=== PATIENT | female | born 1955 | race Caucasian/White ===

== ENCOUNTER 2017-03-11 05:11 | Inpatient (IN) ==
[2017-03-05 12:14] LABS: Apearance,Urine CLEAR (Clear); Bilirubin,Urine Negative (Negative); Blood, Urine Moderate mg/dL (Negative); Glucose,Urine (UA) Negative (Negative); Ketones,Urine Negative (Negative); Mucus,Urine Occasional /LPF (Occasional); Nitrite,Urine Negative (Negative); Protein,Urine Negative; RBC,Urine 1 /HPF (0-4); Urine Color Yellow (Yellow); Urine Specific Gravity 1.012 (1.001-1.035); Urine Urobilinogen < 2.0 EU/DL (0.2-1.0); WBC,Urine 1 /HPF (0-6)
[2017-03-05 12:21] LABS: PT Patient Result 10.8 SECS; Partial Thromboplastin Time 26.2 SECS (0-40)
--- NOTE | 2017-03-05 13:17 | XRay Report ---
XR chest 2V Indication: Respiratory preop evaluation. Comparison: None. Technique: PA and lateral chest x-ray was performed. Findings: The heart size appears within normal limits. Previous sternotomy is demonstrated. Pulmonary vasculature demonstrates no specific abnormality. Hilar structures demonstrate fairly symmetric appearance. The lungs appear clear. Bones and soft tissues demonstrate no evidence of acute pathology. Impression: 1. No active cardiopulmonary disease. 03/05/2017 1:14 PM PROCEDURE INTERPRETED AT [facility] DEPARTMENT OF RADIOLOGY Final Report Signed by: Dr. Carlito Kendrick
[2017-03-11] MEDS ORDERED: VANCOMYCIN INJ 1,000 MG in SODIUM CHLORIDE 0.9% 250 ML IV ONE (06:00)
[2017-03-11] MEDS ORDERED: VANCOMYCIN 1,000 MG VIAL ONE (06:03)
[2017-03-11] MEDS ORDERED: ceFAZolin 1,000 MG VIAL ONE (06:04)
[2017-03-11] MEDS ORDERED: SODIUM CHLORIDE 0.9% 100 ML IV ONE (06:04)
[2017-03-11] MEDS ORDERED: TRANEXAMIC ACID 1,000 MG/10 ML VIAL IV ONE (06:07)
[2017-03-11] MEDS: LACTATED RINGERS 1,000 ML IV SCH ×2 (06:19→22:08)
[2017-03-11] MEDS ORDERED: FAMOTIDINE 20 MG TABLET PO ONE (06:19)
[2017-03-11] MEDS ORDERED: LORazepam 1 MG TABLET PO ONE (06:19)
[2017-03-11] MEDS ORDERED: LORazepam 1 MG TABLET ONE (06:39)
[2017-03-11] MEDS ORDERED: FAMOTIDINE 20 MG TABLET ONE (06:39)
--- NOTE | 2017-03-11 07:12 | History and Physical Update ---
History and Physical Update - History and Physical H&P was reviewed, the patient examined and there: are no changes in the patients condition since last H&P was completed.
[2017-03-11 08:10] LABS: Apearance,Urine CLEAR (Clear); Bilirubin,Urine Negative (Negative); Blood, Urine Small mg/dL (Negative); Glucose,Urine (UA) Negative (Negative); Ketones,Urine Negative (Negative); Nitrite,Urine Negative (Negative); Protein,Urine Negative; RBC,Urine 1 /HPF (0-4); Squamous Epithelial Cell,Urine Occasional /HPF (0-10); Urine Color Colorless (Yellow); Urine Specific Gravity 1.003 (1.001-1.035); Urine Urobilinogen < 2.0 EU/DL (0.2-1.0); WBC,Urine 2 /HPF (0-6)
--- NOTE | 2017-03-11 08:47 | XRay Report ---
Referring Physician: Juvenal Teresa Exam: XR hip OR RT Date: March 11, 2017 at 8:13 AM Reason: Right total hip replacement Comparison: None Findings: One intraoperative image of the right hip was provided. The patient is status post right total hip replacement. Position and alignment appear satisfactory. The remaining visualized osseous structures appear intact. Surgical drains are seen at the lateral aspect of the right hip, and there is mild soft tissue air at the right hip, which is likely related to surgery. A hemostat projects at the hip replacement. Impression: The patient is status post right total hip replacement. Position and alignment appear satisfactory. PROCEDURE INTERPRETED AT [facility] DEPARTMENT OF RADIOLOGY Final Report Signed by: Dr. Clark Perez
[2017-03-11] MEDS ORDERED: PROPOFOL 200 MG/20 ML VIAL IV ONE (08:59)
[2017-03-11] MEDS ORDERED: KETAMINE 500 MG/10 ML VIAL ONE (09:00)
[2017-03-11] MEDS ORDERED: LACTATED RINGERS 1,000 ML IV ONE (09:01)
[2017-03-11] MEDS ORDERED: MORPHINE 10 MG/10 ML VIAL ONE (09:01)
[2017-03-11] MEDS ORDERED: MIDAZOLAM 2 MG/2 ML VIAL ONE (09:01)
[2017-03-11] MEDS ORDERED: MAGNESIUM HYDROXIDE SUSP 30 ML UDCUP PO PRN (09:13)
[2017-03-11] MEDS ORDERED: PROMETHAZINE 25 MG/1 ML VIAL IM PRN (09:13)
[2017-03-11] MEDS ORDERED: HYDROmorphone 2 MG/1 ML VIAL IV PRN (09:13)
[2017-03-11] MEDS ORDERED: NALOXONE 0.4 MG/ML VIAL IV PRN (09:13)
[2017-03-11] MEDS ORDERED: TEMAZEPAM 7.5 MG CAPSULE PO PRN (09:13)
[2017-03-11] MEDS ORDERED: BISACODYL 10 MG SUPP RECTAL PRN (09:13)
[2017-03-11] MEDS ORDERED: LACTULOSE 20 GM/30 ML UDCUP PO PRN (09:13)
[2017-03-11] MEDS ORDERED: diphenhydrAMINE CAP 25 MG CAPSULE PO PRN (09:13)
[2017-03-11] MEDS ORDERED: ONDANSETRON 4 MG/2 ML VIAL IV PRN (09:13)
[2017-03-11] MEDS: HYDROmorphone PCA 30 MG/30 ML SYRINGE IV SCH (13:46)
--- NOTE | 2017-03-11 15:42 | Cardiology Consult Note ---
Ignacio Robbins Vanessa, RN, am scribing for, and in the presence of, Braydon Briggs MD 15:42. Assessment and Plan - Time spent with patient Time spent with patient: Greater than 30 minutes (Due to assessment, planning, documentation, medication review) (1) Status post right hip replacement Status: Acute Assessment and plan: From a cardiac standpoint, she appears to be doing well at this time. We will check EKG in the morning and follow along with you perioperatively. Current Visit: Yes (2) History of coronary artery disease Status: Chronic Assessment and plan: Clinically, no findings for ACS or other anginal equivalent at this time Current Visit: Yes (3) History of coronary artery bypass graft x 1 Status: Chronic Assessment and plan: Appears stable at this time. Current Visit: Yes (4) Osteoarthritis Status: Chronic Assessment and plan: Chronic. Current Visit: Yes History of Present Illness - Data of Consult Patient: known to practice within the last 3 years Consult date: 03/11/17 Requesting Physician: Juvenal Teresa Jr. Primary care physician: Brittnee Jones - Consult Narrative Reason for consult: perioperative cardiac medical management History of present illness: PRIMARY WEED CUTTER: DR. MCGOWAN CARDIOLOGY CONSULT NOTE: PERIOPERATIVEE CARDIAC MANAGEMENT Ms. Gallardo is a 61 year old white female with risk factor significant for: dyslipidemia, known history of CAD. She has never smoked. Patient is status post single-vessel coronary artery bypass grafting to the LAD 13 years ago. Other past medical history includes osteoarthritis. She was seen at [facility] clinic for preoperative evaluation prior to right hip replacement at request of Dr. snider. Patient had admitted to some moderate dyspnea on exertion and was noted to have slightly abnormal EKG. Lexiscan stress testing on March 05 negative for ischemia or diagnostic EKG change. No chest pain or anginal complaint. Lab work revealed cholesterol inadequately controlled, and atorvastatin 40 mg added. Patient was low risk for planned procedure. [facility] for planned total right hip replacement today, carried out earlier this morning, and this was uneventful. Cardiology is now asked to see to follow for perioperative management. Patient seen and examined. Ms. Gallardo is drowsy, but she is arousable and pleasant. She is in no acute distress at this time. Denies chest pain or discomfort, shortness of breath, dizziness, lightheadedness, nausea or vomiting , or other complaint. Skin is warm and dry. Right hip with dry and intact sterile surgical dressing. Wound VAC is in place-serous drainage. Distal pulses are present and palpable bilaterally. Pulse rate is in the 50s and regular by exam. Systolic BP 95-100 mmHg. Overall, she appears hemodynamically stable at this time. We will monitor perioperative EKG and follow with you. She is stable postoperatively and doing well from a cardiac standpoint. CC: Juvenal Teresa Jr., MD - Home Medications and Allergies Home Medications: Home Medications Medication Instructions Recorded Confirmed Type Aspirin EC Tab 325 mg PO DAILY 03/05/17 03/11/17 History Meloxicam 15 mg PO DAILY 03/05/17 03/11/17 History Allergies/Adverse Reactions: Allergies Allergy/AdvReac Type Severity Reaction Status Date / Time No Known Allergies Allergy Verified 03/05/17 11:57 - Constitutional Constitutional: Present: as per HPI - EENT Eyes: Present: as per HPI Nose, mouth and throat: Present: as per HPI - Cardiovascular Cardiovascular: Present: as per HPI - Respiratory Respiratory: Present: as per HPI - Gastrointestinal Gastrointestinal: Present: as per HPI - Genitourinary Genitourinary: Present: as per HPI - Musculoskeletal Musculoskeletal: Present: as per HPI - Neurological Neurological: Present: as per HPI - Psychiatric Psychiatric: Present: as per HPI - Endocrine Endocrine: Present: as per HPI - Hematologic/Lymphatic Hematologic/Lymphatic: Present: as per HPI Medical,Surgical,& Family Hx - Medical History Cardio: History of: CAD, Cardiovascular Problems (Lift Manager Dr. Mcgowan) Neurology: No history of: Seizures HEENT: History of: Ear Problem (Hearing Loss Rt Ear), Eye Problem (Glasses), Dental Problems (Crowns) Endocrine: History of: Dyslipidemia No history of: Diabetes Mellitus (IDDM), Diabetes Mellitus (NIDDM) Respiratory: Comment Only: Respiratory Problems (No Flu Vac 2016/2016 Season) Genitourinary: History of: Problems (overactive bladder) Musculoskeletal: History of: Musculoskeletal Problems (Rt Hip OA) Reproductive: History of: Ovarian Cysts (removal of Rt ovary and cyst) Other: No history of: Anesthesia Reactions, Cancer - Surgical History Cardiac Surgeries: Sugical HX of: Cardiac Catheterization, Cardiac Surgery ( CABG 2003) HEENT Surgeries: Patient denies: Eye Surgery, Tonsilectomy & Adenoidectomy Abdominal Surgeries: Patient denies: Colonoscopy, EGD Reproductive Surgeries: Surgical HX of;: Section, Tubal Ligation (1993) Orthopedic Surgeries: Surgical HX of;: Total Hip Replacement (Rt THR 03/11/17) - Family History Family History: Reports;: Family Anesthesia Reaction (Mother Trouble Waking), Family Cancer (Father Throat CA; Paternal Grandfather Lung), Family Diabetes ( Father, Maternal Grandfather), Family Heart Disease (Grandfather Materal), Family Hematology (Father-Had to have blood drawn off frequently), Family Hypertension (Father) Denies;: Family Stroke - Social History Smoking Status: Never smoker Frequency of Alcohol Use: None Type of Drug Use: None Physical Examination Vital Signs Temp Pulse Resp BP Pulse Ox 99.0 F 63 20 127/84 100 03/11/17 06:21 03/11/17 06:21 03/11/17 06:21 03/11/17 06:21 03/11/17 06:21 General: Present: Appears Well, No Apparent Distress HEENT: Present: PERRL, Normocephaly Neck: Present: Supple Neck, Midline Trachea, No JVD/HJR, No Bruit Cardiac: Present: Reg Rate and Rhythm, No Murmur, Bradycardia. Absent: Tachycardia Lungs: Present: Normal Exam, Clear Ascult./Percussion, No Wheeze, Rales, Rhonchi. Absent: Oxygen Neuro: Present: Grossly Intact. Absent: Numbness, Tingling, Weakness, Resting Tremor, Essential Tremor Abdomen: Present: Soft, Active Bowel Sounds. Absent: Ascites, Tender, Firm, Distended Skin: Present: Clear, Other (Right hip surgical dressing dry and intact. Wound VAC and blood). Absent: Rash Musculoskeletal: Present: Decreased Range of Motion, No Fluid Collection Extremities: Present: No Clubbing, No Cyanosis, No Edema, Normal Upper Extr. Pulses (3+ bilaterally), Normal Lower Extr. Pulses (3+ bilaterally), Capillary Refill (Normal). Absent: Edema Result/EKG - Labs Lab Results: I have reviewed the past 24 hour labs Labs: Laboratory Results - last 24 hr 03/11/17 03/11/17 06:11 08:04 Urine Color Colorless Urine Appearance Clear Urine pH 7.0 Ur Specific [place] 1.003 Urine Protein Negative Urine Glucose (UA) Negative Urine Ketones Negative Urine Blood Small Urine Nitrate Negative Urine Bilirubin Negative Urine Urobilinogen < 2.0 H Urine Leukocytes Small H Urine RBC 1 Urine WBC 2 Ur Squamous Epith Cells Occasional Ur Culture Indicated? Results to follow Blood Type A POSITIVE Antibody Screen Negative - EKG EKG results: interpreted by me, no acute changes EKG shows: bradycardia (Sinus bradycardia) Chester Robbins Wesley, MD, personally performed the services described in this documentation, ascribed by Meron Pierre RN in my presence, and it is both accurate and complete 542 .
--- NOTE | 2017-03-11 17:43 | Orthopedic Progress Note ---
Orthopedics - Subjective Interval history: Comfortable only use TUBER MACHINE OPERATOR HELPER once neurovascular intact , discussed iatrogenic fracture and PT , will progress starting in a.m. Exam - Constitutional Vitals: Period Temp Pulse Resp BP Sys/Montiel Pulse Ox Last 24 Hr 97.0 F-99.0 F 50-91 12-20 90-127/42-84 97-100
[2017-03-11] MEDS: FONDAPARINUX 2.5 MG/0.5 ML SYRINGE SUBCUT SCH (22:02)
[2017-03-11] MEDS: DOCUSATE SODIUM 100 MG CAPSULE PO SCH (22:02)
[2017-03-12] MEDS: LACTATED RINGERS 1,000 ML IV SCH ×2 (00:43→15:00)
[2017-03-12 05:18] LABS: Basophils % 0.2 % (0.0-0.8); Hematocrit 32.7 VOL% (35.7-47.0); Hemoglobin 11.2 GM/DL (12.0-16.0); Immature Granulocytes % 0.4 %; Immature Granulocytes Absolute 0.04 #; Lymphocytes # 1.1 10*3/uL (1.4-4.0); Lymphocytes % 11.2 % (21.3-54.2); Mean Corpuscular HGB Conc 34.3 GM/DL (32-36); Mean Corpuscular Hemoglobin 28 PG (27-34); Mean Corpuscular Volume 82.4 FL (87-102); Mean Platelet Volume 10.8 FL (9.6-12.0); Monocytes # 0.8 10*3/uL (0.11-0.8); Neutrophils # 8.2 10*3/uL (1.4-7.4); Neutrophils % 80.2 % (38.7-73.9); Platelet Count 152 T/CUMM (130-400); Red Blood Count 3.97 MC/CUMM (3.8-5.5); Red Cell Distribution Width 12.1 % (9.3-17.3); White Blood Count 10.2 T/CUMM (4-12)
[2017-03-12 05:40] LABS: Hypochromasia Slight; Microcytosis 1+; Platelet Estimate Adequate
[2017-03-12 05:49] LABS: Calcium 7.8 MG/DL (8.5-10.1); Osmolality,Calculated 271.8 MOS/KG (273-304); Potassium 3.5 MMOL/L (3.5-5.1)
--- NOTE | 2017-03-12 07:13 | EKG Report ---
Stationary ECG Study [facility] Test Date: 03/12/2017 7:13:07 AM Pat Name: SONIA AMADO Department: Room: 316 Gender: F Teenage Program Director: SOPHIE : [id number] Requested by: Braydon Briggs Order Number: [id number] Reading MD: BRAYDON BRIGGS Intervals [place] Rate: 93 P: 72 DC: 145 QRS: 24 QRSD: 101 T: 55 QT: 354 QTc: 405 Interpretive Statements SINUS RHYTHM WITH OCCASIONAL SUPRAVENTRICULAR PREMATURE COMPLEXES POSSIBLE LEFT ATRIAL ENLARGEMENT LOW QRS VOLTAGE IN PRECORDIAL LEADS INCOMPLETE RIGHT BUNDLE BRANCH BLOCK POSSIBLE ANTERIOR MYOCARDIAL INFARCTION, PROBABLY OLD Electronically Signed On 03-12-17 16:11:42 CDT by BRAYDON BRIGGS [email or web address]
--- NOTE | 2017-03-12 07:29 | Operative Note ---
DATE: 03/11/2017 PREOPERATIVE DIAGNOSIS: OSTEOARTHRITIS, RIGHT HIP. POSTOPERATIVE DIAGNOSIS: OSTEOARTHRITIS, RIGHT HIP. OPERATIVE PROCEDURE: RIGHT TOTAL HIP (S-ROM). SURGEON: Juvenal Teresa Jr., MD EARLY CHILDHOOD EDUCATOR AIDE: Dr. Storm ANESTHESIA: Spinal. INDICATIONS: A 61-year-old white female with longstanding osteoarthritis to her right hip. She has maximized conservative treatment. Her pain has gotten significant, not controlled with oral agents. She was recently evaluated and felt to be a candidate for total hip. Due to progression of her pain and her functional limitation, she presents today for elective procedure. OPERATIVE PROCEDURE: The patient was taken to the operating room, under spinal anesthetic, positione d in left lateral decubitus position. The right hip and lower extremity were prepped and draped in t he usual sterile manner. She received Vancomycin, Ancef preoperatively. A curvilinear incision was made over the posterolateral aspect of her right hip. Sharp dissection was carried down through the skin and subcutaneous tissue. The gluteus and IT band were split. The hip internally rotated, and the short rotators and capsule were dissected off the back of the proximal femur and kept the split f or later repair. The head dislocated and resected. The acetabulum was exposed and sequentially ream ed up to 49 mm. A cup was press fit into place, secured with a single screw and a trial neutral line r placed. The proximal femur was then prepared for the S-ROM, ultimately selecting a 16B small colla r. The initial reduction with the +6 lateralize resulted in a fracture of the medial calcar. This w as reduced and secured with a cable. The stem was changed to a 30 standard neck, 20/08 with the same collar. This resulted in good stability with a 0 head and equalization of limb lengths clinically o n the table. The trial components were removed including the acetabulum. The neutral liner was secu red, and the S-ROM sleeve and stem inserted. Again, a 0 head was trialed and selected. The hip was re-dislocated a final time and the head exchanged to a 32 mm Zero. Hip was relocated, intraoperative film confirming satisfactory position and also reduction of the medial calcar. The wound was furthe r irrigated and closed in a standard fashion over two 1/8-inch Hemovac drains using #1 Vicryl for th e posterior capsule as well as the IT band layer, 2-0 Vicryl for subcutaneous layer, and willian for skin. Sterile dressings applied, abduction pillow placed. She was rolled supine, placed on a bed an d taken to recovery room in stable condition.
--- NOTE | 2017-03-12 07:55 | Orthopedic Progress Note ---
Orthopedics - Subjective Interval history: Hematocrit over 30 comfortable drain removed neurovascularly intact will start PT today discussed working on home health Exam - Constitutional Vitals: Period Temp Pulse Resp BP Sys/Montiel Pulse Ox Last 24 Hr 97.0 F-100.1 F 50-104 12-20 85-123/42-68 93-100 Results - Labs CBC & BMP: 03/12/17 05:09 03/12/17 05:09
[2017-03-12] MEDS: ASPIRIN EC 325 MG TABLET PO SCH (09:59)
[2017-03-12] MEDS: MELOXICAM 7.5 MG TABLET PO SCH (09:59)
[2017-03-12] MEDS: DOCUSATE SODIUM 100 MG CAPSULE PO SCH ×2 (09:59→20:55)
[2017-03-12] MEDS: HYDROmorphone PCA 30 MG/30 ML SYRINGE IV SCH (10:01)
--- NOTE | 2017-03-12 11:52 | Anesthesia Post-Op ---
Anesthesia Post OP - Post Ansesthetic Evaluation Patient seen in post op: Yes Resp: within normal limits CV: within normal limits Mental: within normal limits Temp: within normal limits Cehd-An-Wojxazhea: within normal limits Nausea and Vomiting: within normal limits Pain: within normal limits
--- NOTE | 2017-03-12 13:20 | Pathology Report from [facility] ---
[facility] ACCESSION # : [id number] PATIENT NAME : Rema Amado ORDERING DR : YONG BOOKER JR, MD CLINICAL HX: RT hip osteoarthritis POST-OP DX: Same SPECIMEN INFO: RT hip bone & tissue GROSS DESCRIPTION: Received in formalin labeled REMA AMADO is a femoral head measuring 4.3 x 4.8 x 5.3 cm. The articular surface is red hess and focally degenerative with no subchondral eburnation identified. The cut surface is smooth with no softening appreciated. Received separately in the specimen container is an aggregate of bone and soft tissue measuring 8.0 x 6.0 cm. Proced Tech tissue is submitted in one cassette following decalcification. DIAGNOSIS FOR REMA AMADO: RIGHT HIP BONE & TISSUE, TOTAL REPLACEMENT: Osteoarthritis. COLLECTED DATE: 03/11/2017 [facility] REPORT DATE: 03/12/2017 ELECTRONICALLY SIGNED BY: Mery Joyce M.D. 03/12/2017 - 10:11:24 MTDVasquez
--- NOTE | 2017-03-12 13:47 | Cardiology Progress Note ---
Ignacio Robbins Vanessa, RN, am scribing for, and in the presence of, Braydon Briggs MD 13:46. Assessment and Plan - Time spent with patient Time spent with patient: Greater than 30 minutes (1) Status post right hip replacement Status: Acute Assessment and plan: POD #1 status post total right hip replacement. EKG this morning without acute change or finding. At this time, she seems to be doing well hemodynamically. Will defer primary management to orthopedic surgery. Current Visit: Yes (2) History of coronary artery disease Status: Chronic Assessment and plan: Clinically, remains without finding for ACS. She is not having any anginal complaint today. Current Visit: Yes (3) History of coronary artery bypass graft x 1 Status: Chronic Assessment and plan: Appears to be stable at this time. Current Visit: Yes (4) Osteoarthritis Status: Chronic Assessment and plan: Chronic. Current Visit: Yes Cardiology - PN: Subj Interval history: PRIMARY POULTRY HATCHERY MANAGER: DR. WELLINGTON SUMMARY: Ms. Gallardo is a 61 year old white female with risk factor significant for: dyslipidemia, known history of CAD. She has never smoked. Patient is status post single-vessel coronary artery bypass grafting to the LAD 13 years ago. Other past medical history includes osteoarthritis. She was seen at [facility] clinic for preoperative evaluation prior to right hip replacement at request of Dr. snider. Patient had admitted to some moderate dyspnea on exertion and was noted to have slightly abnormal EKG. Lexiscan stress testing on March 05 negative for ischemia or diagnostic EKG change. No chest pain or anginal complaint. Lab work revealed cholesterol inadequately controlled, and atorvastatin 40 mg added. Patient was low risk for planned procedure. She presented to [facility] for planned total right hip replacement today, carried out earlier this morning, and this was uneventful. Cardiology is now asked to see to follow for perioperative management. March: Ms. Gallardo is now POD #1 status post total right hip replacement. She is awake and alert and in no acute distress. Spouse present at bedside. Reports she rested fairly well overnight. She has been out of bed this morning with assistance of PT and OT, and she reports this went well. No chest pain, dyspnea , or other anginal complaint overnight. No nausea or vomiting. Reports pain is fairly well controlled at this time with mild discomfort after completing therapy. Dilaudid FOUR SLIDE MACHINE OPERATOR in place. EKG this morning shows sinus rhythm pulse in the 90s and no ectopy or dysrhythmia. Systolic BP 100-110 mmHg. Borderline low blood pressure with systolic pressure 85-89 mmHg yesterday evening and while asleep. Overall, from a cardiac standpoint she appears to be doing well. Patient is stable and doing well without complaints or problems. Exam (Progress Note) - Constitutional Vitals: Period Temp Pulse Resp BP Sys/Montiel Pulse Ox Last 24 Hr 97.7 F-100.1 F 56-104 16-20 85-123/42-67 93-100 Exam: General: Present: Appears Well, No Apparent Distress HEENT: Present: PERRL, Normocephaly Neck: Present: Supple Neck, Midline Trachea, No JVD/HJR, No Bruit Cardiac: Present: Reg Rate and Rhythm, No Murmur, Bradycardia. Absent: Tachycardia Lungs: Present: Normal Exam, Clear Ascult./Percussion, No Wheeze, Rales, Rhonchi. Absent: Oxygen Neuro: Present: Grossly Intact. Absent: Numbness, Tingling, Weakness, Resting Tremor, Essential Tremor Abdomen: Present: Soft, Active Bowel Sounds. Absent: Ascites, Tender, Firm, Distended Skin: Present: Clear, Other (Right hip surgical dressing dry and intact.) Absent: Rash, suspicious lesion Musculoskeletal: Present: Decreased Range of Motion, No Fluid Collection Extremities: Present: No Clubbing, No Cyanosis, No Edema, Normal Upper Extr. Pulses (3+ bilaterally), Normal Lower Extr. Pulses (3+ bilaterally), Capillary Refill (Normal). Absent: Edema Result/EKG - Labs CBC & BMP: 03/12/17 05:09 03/12/17 05:09 Lab Results: I have reviewed the past 24 hour labs Labs: Laboratory Results - last 24 hr 03/12/17 03/12/17 05:09 05:09 WBC 10.2 RBC 3.97 Hgb 11.2 L Hct 32.7 L MCV 82.4 L MCH 28 MCHC 34.3 RDW 12.1 Plt Count 152 MPV 10.8 Neut % (Auto) 80.2 H Lymph % (Auto) 11.2 L [place] % (Auto) 8.0 Eos % (Auto) 0.0 Baso % (Auto) 0.2 Neut # (Auto) 8.2 H Lymph # (Auto) 1.1 L [place] # (Auto) 0.8 Eos # (Auto) 0.0 Baso # (Auto) 0.0 Immature Gran % 0.4 Nucleated RBC % 0.0 Immature Gran # 0.04 Nucleated RBCs # 0.00 Platelet Estimate Adequate Hypochromasia Slight Microcytosis 1+ Sodium 137 Potassium 3.5 Chloride 102 Carbon Dioxide 27 Anion Gap 11.5 BUN 11 Creatinine 0.80 GFR Calculation 84 BUN/Creatinine Ratio 13.00 Glucose 104 Calculated Osmolality 271.8 L Calcium 7.8 L - EKG EKG results: interpreted by me, no acute changes EKG shows: sinus rhythm Chester Robbins Wesley, MD, personally performed the services described in this documentation, ascribed by Meron Pierre RN in my presence, and it is both accurate and complete [id number] .
[2017-03-12] MEDS: FONDAPARINUX 2.5 MG/0.5 ML SYRINGE SUBCUT SCH (20:54)
[2017-03-13] MEDS: LACTATED RINGERS 1,000 ML IV SCH ×2 (02:40→05:00)
[2017-03-13 04:51] LABS: Basophils % 0.2 % (0.0-0.8); Hematocrit 31.6 VOL% (35.7-47.0); Hemoglobin 10.9 GM/DL (12.0-16.0); Immature Granulocytes % 0.3 %; Immature Granulocytes Absolute 0.03 #; Lymphocytes # 1.1 10*3/uL (1.4-4.0); Lymphocytes % 11.1 % (21.3-54.2); Mean Corpuscular HGB Conc 34.5 GM/DL (32-36); Mean Corpuscular Hemoglobin 28 PG (27-34); Mean Corpuscular Volume 81.9 FL (87-102); Mean Platelet Volume 10.8 FL (9.6-12.0); Monocytes # 0.7 10*3/uL (0.11-0.8); Monocytes % 7.7 % (1.7-12.7); Neutrophils # 7.7 10*3/uL (1.4-7.4); Neutrophils % 80.7 % (38.7-73.9); Platelet Count 140 T/CUMM (130-400); Red Blood Count 3.86 MC/CUMM (3.8-5.5); White Blood Count 9.6 T/CUMM (4-12)
[2017-03-13 05:29] LABS: Hypochromasia 1+; Lymphocytes 12 % (20-55); Microcytosis 1+; Platelet Estimate Normal; Segmented Neutrophils 86 % (50-85); Total Cells Counted 100
[2017-03-13] MEDS: DOCUSATE SODIUM 100 MG CAPSULE PO SCH ×2 (08:27→20:31)
[2017-03-13] MEDS: ASPIRIN EC 325 MG TABLET PO SCH (08:27)
[2017-03-13] MEDS: MELOXICAM 7.5 MG TABLET PO SCH (08:28)
--- NOTE | 2017-03-13 08:51 | Orthopedic Progress Note ---
Orthopedics - Subjective Interval history: Hemoglobin 11 pain much improved dressing is dry tolerating PT with touchdown weightbearing to the clarke likely home tomorrow after PT instructed Exam - Constitutional Vitals: Period Temp Pulse Resp BP Sys/Montiel Pulse Ox Last 24 Hr 98.4 F-100.2 F 86-106 18-20 100-117/57-66 94-97 Results - Labs CBC & BMP: 03/13/17 04:43 03/12/17 05:09
--- NOTE | 2017-03-13 08:56 | Discharge Summary ---
Hospital Course - Hospital Course Hospital Course: Admitted for elective right total hip uncomplicated course discharged home with home health Diagnosis - Discharge Diagnosis (1) Osteoarthritis of right hip Status: Acute Specialty Discharge - Follow Up or Referrals Follow up with: Juvenal Treesa Jr., MD [Physician] - 04/01/17 12:30 pm Discharge Plan - Discharge Data Disposition: Home Health Service Condition at Discharge: Stable Discharge Diet: advance to your usual diet Activity: ambulate only with your walker, as per physical therapy, increase activity as tolerated Hygiene: may shower, keep area(s) dry Weight Bearing at Discharge: toe touch (Touchdown to 20 pounds weightbearing on right with hip precautions) - Discharge Medications New HYDROcodone/ACETAMIN 7.5-325 [Adrian 7.5-325] 2 tablet PO Q4H PRN #30 tablet PRN Reason: Moderate Pain unrelieved by 1 Continue Aspirin EC Tab 325 mg PO DAILY Meloxicam 15 mg PO DAILY - Follow Up or Referral Follow Up: Juvenal Teresa Jr., MD [Physician] - 04/01/17 12:30 pm - Forms/Instructions Additional Discharge Instructions: Discharge to home with home health service. Touchdown weightbearing to 20 pounds on right with hip precautions. Walker. Bedside commode. Shower chair/bench. Hillary to be removed and wound Steri- Stripped March 25. Follow-up appointment April 01. Exam - Constitutional Vitals: Period Temp Pulse Resp BP Sys/Montiel Pulse Ox Last 24 Hr 96.8 F-100.7 F 84-99 18-20 98-110/55-62 95-100 DS: Provider Date of admission: 03/11/17 05:11 Primary care physician: Adin Mcgowan MD Attending physician on admission: Juvenal Teresa Jr., MD Consults: 03/11/17 09:14 Consult to Case Mgmt/Social Srvs [CONS] Routine Reason for Case Mgmt/Social Srvs: Rehab Home Health Equipment Consult Comment: Bedside Commode,Del to Rm 316 today before D/C home; Pt 5ft 4in 166lbs. Consult to Occupational Therapy [CONS] Routine Reason for Occupational Therapy: Evaluate and Treat Consult Comment: ADL's Consult to Physical Therapy [CONS] Routine Reason for Physical Therapy: Evaluate and Treat Gait Training Consult Comment: Touchdown weight-bear on right to 20 pounds 03/11/17 09:19 Consult to Physician [CONS] Routine Comment: Consulting Provider: Adin Mcgowan Consulting Provider Notified: Yes When should Consulting Provider be notified: Now Person Notified: Waleska diaz Date Notified: 03/11/17 Time Notified: 10:34 03/11/17 10:29 Consult to Physician [CONS] Routine Comment: Consulting Provider: 03/13/17 09:20 Consult to Physical Therapy [CONS] Routine Reason for Physical Therapy: Other Consult Comment: A Rolling wheelchair w/wheels on the front was already given to the patient Discharging clinician: Juvenal Teresa Jr., MD
--- NOTE | 2017-03-13 11:35 | Cardiology Progress Note ---
Ignacio Robbins Vanessa, RN, am scribing for, and in the presence of, Braydon Briggs MD 11:35. Assessment and Plan - Time spent with patient Time spent with patient: Greater than 30 minutes (1) Status post right hip replacement Status: Acute Assessment and plan: POD #2 status post total right hip replacement. EKG is without ischemic change. At this time, she is hemodynamically stable. Will defer primary management to orthopedic surgery. Current Visit: Yes (2) History of coronary artery disease Status: Chronic Assessment and plan: No findings for acute coronary syndrome and she is not having any anginal complaint. Current Visit: Yes (3) History of coronary artery bypass graft x 1 Status: Chronic Assessment and plan: Continues to be stable at this time. Current Visit: Yes (4) Osteoarthritis Status: Chronic Assessment and plan: Chronic. Current Visit: Yes Cardiology - PN: Subj Interval history: PRIMARY POUNDMASTER: DR. WELLINGTON SUMMARY: Ms. Gallardo is a 61 year old white female with risk factor significant for: dyslipidemia, known history of CAD. She has never smoked. Patient is status post single-vessel coronary artery bypass grafting to the [facility] 13 years ago. Other past medical history includes osteoarthritis. She was seen at [facility] for preoperative evaluation prior to right hip replacement at request of Dr. snider. Patient had admitted to some moderate dyspnea on exertion and was noted to have slightly abnormal EKG. Lexiscan stress testing on March 05 negative for ischemia or diagnostic EKG change. No chest pain or anginal complaint. Lab work revealed cholesterol inadequately controlled, and atorvastatin 40 mg added. Patient was low risk for planned procedure. [facility] presented [facility] for planned total right hip replacement today, carried out earlier this morning, and this was uneventful. Cardiology is now asked to see to follow for perioperative management. March: Mrs. Gallardo is POD #2 s/p total right hip replacement. She is awake and alert and is pleasant this morning. Reports she has rested well overnight without complaint and has been increasing activity with PT. She is not experiencing any chest pain, shortness of breath, or other anginal equivalent at rest or with exertion. H&H stable 10.9/31.6. Her pain is mild and she is not requiring much use of [employer]. SBP ranging 100-115 mmHg. She is tentatively planned for discharge home tomorrow with home health. Overall, she is doing well from a cardiac standpoint. We have nothing further to add at this time will sign off. Please reconsult us if we are needed prior to discharge. Exam (Progress Note) - Constitutional Vitals: Period Temp Pulse Resp BP Sys/Montiel Pulse Ox Last 24 Hr 98.4 F-100.2 F 86-106 18-20 100-117/57-66 94-97 Exam: General: Present: Appears Well, No Apparent Distress HEENT: Present: PERRL, Normocephaly Neck: Present: Supple Neck, Midline Trachea, No JVD/HJR, No Bruit Cardiac: Present: Reg Rate and Rhythm, No Murmur, Bradycardia. Absent: Tachycardia Lungs: Present: Normal Exam, Clear Ascult./Percussion, No Wheeze, Rales, Rhonchi. Absent: Oxygen Neuro: Present: Grossly Intact. Absent: Numbness, Tingling, Weakness, Resting Tremor, Essential Tremor Abdomen: Present: Soft, Active Bowel Sounds. Absent: Ascites, Tender, Firm, Distended Skin: Present: Clear, Other (Right hip surgical dressing dry and intact, minimal bruising.) Absent: Rash, suspicious lesion Musculoskeletal: Present: Decreased Range of Motion, No Fluid Collection Extremities: Present: No Clubbing, No Cyanosis, No Edema, Normal Upper Extr. Pulses (3+ bilaterally), Normal Lower Extr. Pulses (3+ bilaterally), Capillary Refill (Normal). Absent: Edema Result/EKG - Labs CBC & BMP: 03/13/17 04:43 03/12/17 05:09 Lab Results: I have reviewed the past 24 hour labs Labs: Laboratory Results - last 24 hr 03/13/17 04:43 WBC 9.6 RBC 3.86 Hgb 10.9 L Hct 31.6 L MCV 81.9 L MCH 28 MCHC 34.5 RDW 12.0 Plt Count 140 MPV 10.8 Neut % (Auto) 80.7 H Lymph % (Auto) 11.1 L [place] % (Auto) 7.7 Eos % (Auto) 0.0 Baso % (Auto) 0.2 Neut # (Auto) 7.7 H Lymph # (Auto) 1.1 L [place] # (Auto) 0.7 Eos # (Auto) 0.0 Baso # (Auto) 0.0 Total Counted 100 Immature Gran % 0.3 Nucleated RBC % 0.0 Immature Gran # 0.03 Segmented Neutrophils 86 H Lymphocytes 12 L Monocytes 2 Nucleated RBCs # 0.00 Platelet Estimate Normal Hypochromasia 1+ Microcytosis 1+ Morphology Comment - EKG EKG results: interpreted by me, no acute changes Specialty Discharge - Follow Up or Referrals Follow up with: Juvenal Teresa Jr., MD [Physician] - 04/01/17 12:30 pm IChester Wesley, MD, personally performed the services described in this documentation, ascribed by Meron Pierre RN in my presence, and it is both accurate and complete [id number] .
[2017-03-13] MEDS: HYDROmorphone PCA 30 MG/30 ML SYRINGE IV SCH (15:24)
[2017-03-13] MEDS: FONDAPARINUX 2.5 MG/0.5 ML SYRINGE SUBCUT SCH (20:31)
[2017-03-14 07:06] VITALS: BP 106/55
[2017-03-14] MEDS: MELOXICAM 7.5 MG TABLET PO SCH (08:44)
[2017-03-14] MEDS: DOCUSATE SODIUM 100 MG CAPSULE PO SCH (08:45)
[2017-03-14] MEDS: ASPIRIN EC 325 MG TABLET PO SCH (08:45)
--- NOTE | 2017-03-14 10:04 | Orthopedic Progress Note ---
Assessment and Plan (1) Status post right hip replacement Status: Acute Assessment and plan: Discharge home today Current Visit: Yes Orthopedics - Subjective Interval history: Patient is dressed this morning and sitting in the bedside chair. She is ready to go home. On exam, wounds clean and dry she is neurovascularly intact. Exam - Constitutional Vitals: Period Temp Pulse Resp BP Sys/Montiel Pulse Ox Last 24 Hr 96.8 F-100.7 F 84-99 18-20 98-110/55-62 95-100 Results - Labs CBC & BMP: 03/13/17 04:43 03/12/17 05:09 Specialty Discharge - Follow Up or Referrals Follow up with: Juvenal Teresa Jr., MD [Physician] - 04/01/17 12:30 pm
== END 2017-03-14 11:15 | disposition home health service (06) | DRG 470 ==
LOC: N.SDSINP 05:11 → N.3E 10:07
PROVIDERS: ADMIT Orthopaedic Surgery; ATTEND Orthopaedic Surgery